=== PATIENT | male | born 1975 | race Caucasian/White ===

== ENCOUNTER 2019-09-16 19:01 | Emergency (ER) | payer BC, OTHER ==
[2019-09-16] MEDS ORDERED: LORazepam 2 MG/ML SDV IM ONE (19:08)
[2019-09-16] MEDS ORDERED: diphenhydrAMINE 50 MG/ML SDV IM ONE (19:09)
[2019-09-16] MEDS ORDERED: Haloperidol Lactate 5 MG/ML SDV IM ONE ×2 (19:09→19:34)
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
[2019-09-16] MEDS ORDERED: Haloperidol Lactate 5 MG/ML SDV IVPUSH ONE (20:12)
[2019-09-16] MEDS ORDERED: Famotidine 20 MG/2 ML SDV IVPUSH ONE (20:17)
[2019-09-16] MEDS ORDERED: Pantoprazole 40 MG Vial IVPUSH ONE (20:17)
[2019-09-16] MEDS ORDERED: Ondansetron 4 MG/2 ML SDV IVPUSH ONE (20:18)
[2019-09-16] MEDS ORDERED: Thiamine 100 MG in Sodium Chloride 0.9% 100 ML IV ONE (20:18)
[2019-09-16] MEDS ORDERED: Sodium Chloride 0.9% 1,000 ML IV ONE (20:18)
[2019-09-16] MEDS: Sodium Chloride 0.9% 10 ML Syringe FLUSH PRN ×3 (20:39→20:44)
[2019-09-16 20:47] LABS: CHLORIDE,CL 106 mmol/L (98-107); SODIUM,NA 145 mmol/L (136-145)
[2019-09-16 21:29] VITALS: BP 126/86; PULSE 125
== END 2019-09-16 20:50 ==
LOC: LL.ED 19:01
DX: R45.851 Suicidal ideations (principal); R45.850 Homicidal ideations; F10.120 Alcohol abuse with intoxication, uncomplicated; E87.6 Hypokalemia; Z91.048 Other nonmedicinal substance allergy status; F17.290 Nicotine dependence, other tobacco product, uncomplicated; Y90.8 Blood alcohol level of 240 mg/100 ml or more
CPT/HCPCS: 36415; 80053; 80307; 83735; 85025; 96372; 96374; 96375; 99285; C9113; J1200; J1630; J2060; J2405; J3411; J3490; J7030; J7050